=== PATIENT | female | born 1950 | race Caucasian/White ===

== ENCOUNTER → 2018-03-04 | Day surgery (SDC) | payer BC ==
[2018-02-24 13:12] LABS: BASOPHILS % 0.6 % (0.0-1.0); EOSINOPHILS # (AUTO) 0.1 (0.0-0.4); EOSINOPHILS % 1.6 % (0.0-6.0); HEMATOCRIT 38.1 % (34.2-44.1); HEMOGLOBIN 12.5 g/dL (12.0-16.0); LYMPHOCYTES # (AUTO) 2.7 (1.0-3.2); MEAN CORPUSCULAR HEMOGLOBIN 33.6 pg (28-32); MEAN CORPUSCULAR HGB CONC 32.8 g/dL (31-35); MEAN CORPUSCULAR VOLUME 102.4 fL (81-99); MONOCYTES # (AUTO) 0.5 (0.2-0.8); NEUTROPHILS # (AUTO) 3.7 (2.1-6.9); NEUTROPHILS % 52.8 % (38.7-80.0); PLATELET COUNT 139 x10e3/uL (140-360); RED BLOOD COUNT 3.72 x10e6/uL (3.6-5.1); RED CELL DISTRIBUTION WIDTH 13.2 % (11.7-14.4)
[~2018-03-04] MED LIST: ACETAMINOPHEN PO; ALENDRONATE SOD70 MG PO; ARMOUR THYROID120 MG PO; ASPIR 8181 MG PO; BENADRYL25 M1 PO; BUSPIRONE HCL15 MG PO; CALCIUM 1,0001 EACH PO; COQ-10100 MG PO; DEXILANT60 MG PO; FENTANYL CITRATE/PF 100MCG/2 ML INJ ONE; FUROSEMIDE40 MG PO; MAGNESIUM OXID400 MG PO; METOPROLOL SUCC50 MG PO; MIDAZOLAM HCL 2 MG/2 ML VIAL ONE; MULTIVITAMINS1 EAC7 PO; NORCO 10-325 T1 EACH PO; OR PHACO EYE KIT ONE; POTASSIUM99 M1 PO; PREOP PHACO EYE KIT ONE; SELENIUM100 MCG PO; TRAZODONE HCL100 MG PO; TRINTELLIX PO; ULTRAM 50MG50 MG PO; VITAMIN D35000 UNI1 PO; VITAMIN E400 UNI1 PO; ZINC50 M2 PO; [UNRECOGNIZED DRUG - OTHER] PO; [UNRECOGNIZED DRUG - OTHER] PO
--- OUTSIDE RECORDS SUMMARY | 2018-03-04 13:11 | XMS REPORT | Clinical Summary ---
Author Author Pritchard [facility] Organization [facility] Address Unknown Phone Unavailable Care Team Providers Care Grit Blaster Name Role Phone Asked, Pcp PCP Unavailable Allergies No Known Allergies Current Medications Prescription Sig. Disp. Refills Start End Date Status Date thyroid, pork, (ARMOUR Take 180 mg by mouth Active THYROID) 180 mg tablet daily. alendronate (FOSAMAX) 70 Take 70 mg by mouth every Active MG tablet 7 days. Take in the morning with a full glass of water, on an empty stomach, and do not take anything else by mouth or lie down for the next 30 min. HYDROcodone-acetaminophen Take 1 tablet by mouth Active (NORCO) 10-325 mg per every 6 (six) hours as tablet needed for moderate pain. traMADol (ULTRAM) 50 mg Take 50 mg by mouth every Active tablet 6 (six) hours as needed for moderate pain. busPIRone (BUSPAR) 10 MG Take 15 mg by mouth 3 Active tablet (three) times a day. metoprolol succinate XL Take 50 mg by mouth Active (TOPROL-XL) 50 mg 24 hr daily. tablet furosemide (LASIX) 40 mg Take 40 mg by mouth 2 Active tablet (two) times a day. dexlansoprazole Take 60 mg by mouth Active (DEXILANT) 60 mg capsule daily. methyldopa (ALDOMET) 500 Take 500 mg by mouth 3 Active MG tablet (three) times a day. acetaminophen (TYLENOL) Insert 325 mg into the Active 325 MG suppository rectum every 4 (four) hours as needed for mild pain. potassium chloride Take 20 mEq by mouth 2 Active (KLOR-CON) 20 mEq packet (two) times a day. aspirin (ECOTRIN) 81 MG Take 81 mg by mouth Active enteric coated tablet daily. ARMOUR THYROID 120 mg 01/16/20 Active tablet 18 traZODone (DESYREL) 100 02/04/20 Active MG tablet 18 TRINTELLIX 20 mg tablet 01/22/20 Active 18 coenzyme Q10 (CO Q-10) Take 100 mg by mouth Active 100 mg capsule daily. cholecalciferol, vitamin Take by mouth. Active D3, (VITAMIN D3) 5,000 unit tablet vitamin E 400 UNIT Take 400 Units by mouth Active capsule daily. CALCIUM ACETATE ORAL Take 1,000 mg by mouth. Active zinc 50 mg tablet Take by mouth. Active multivitamin/iron/folic Take by mouth. 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) after 03/03/2017 Social History Tobacco Use Types Packs/Day Years Used Date Former Smoker Smokeless Tobacco: Former User Alcohol Use Drinks/Week oz/Week Comments No Sex Assigned at Date Recorded Not on file Last Filed Vital Signs Vital Sign Reading Time Taken Blood Pressure 112/54 02/05/2018 9:38 AM CDT Pulse 55 02/05/2018 9:38 AM CDT Temperature 36.6 C (97.8 F) 02/05/2018 9:38 AM CDT Respiratory Rate 16 02/05/2018 9:38 AM CDT Oxygen Saturation - - Inhaled Oxygen - - Concentration Weight 56.7 kg (125 lb) 02/05/2018 9:38 AM CDT Height 154.9 cm (5' 1") 02/05/2018 9:38 AM CDT Body Mass Index 23.62 02/05/2018 9:38 AM CDT Plan of Treatment Date Type Specialty Care Team Description 04/02/2018 Office Visit Cardiovascular Scott Borden MD [address] [address] Health Maintenance Due Date Last Done Comments COLONOSCOPY 2000 MAMMOGRAM 2000 SHINGRIX VACCINE (#1) 2000 ZOSTER VACCINE 2010 PNEUMOCOCCAL 2015 POLYSACCHARIDE VACCINE AGE 65 AND OVER PNEUMOCOCCAL-13 2015 INFLUENZA VACCINE 05/21/2018 Results * PV physiologic arterial upper extremity w thoracic outlet maneuvers (2017 9:41 AM) Specimen Performing Laboratory [facility] [address] [place] [address] Narrative [facility] Upper Extremity Arterial Physiologic Report [address] [place], [place] Pat.Name:AUNG MACHADO Pat.ID:[id number] St.Date: 02/05/2018 Refer.MD:SCOTT BORDEN MD Exam Time: 8:33:00 AMStudy Type:Physiologic Arm DOBAge:1950,67Y Sex: FEMALE Sonogrphr: Cande Robertson RN, RVT CPT - 4: 08791 Echo Event ID:[id number] Order ID:[id number] Reason for Study:Dull aching pain both arms at rest, left greater than right, with piercing pain left upper arm with reaching, thumb and 2nd digit become numb.History of TOS left with muscle/tendon release in 1994.Weight loss of 200pounds since 1994 with increased pain. Race:C SUMMARY: DOPPLER SIGNALS /ANALOG WAVEFORMS: ARTERY RIGHT LEFT Subclavian Triphasic* Triphasic* Axillary Triphasic* Triphasic* Brachial Triphasic Triphasic Radial Triphasic Triphasic Ulnar Triphasic Triphasic *=Disturbed SEGMENTAL PRESSURE: Pressure (mmHg)Index RIGHTLEFT RIGHT LEFT Brachial 116 121 Radial 121 130 1.0 1.07 Ulnar 122 128 1.01 1.06 2nd Digit 137 141 1.13 1.17 THORACIC OUTLET MANEUVERS: PPG placed on bilateral index finger (second digit) RIGHT LEFT Baseline /resting Normal Normal Arms 90 degrees Normal Normal Arms 180 degrees Normal Normal MilitaryNormal Normal -head rightNormal Normal -head left Normal Normal Symptomatic-arms extended Normal Normal to front at 45 degrees Patient reports aching both upper arms at rest with increased pain in left upper arm with arm extended 45 degrees. The patient was seen in clinic today by Dr. Borden. PHYSICIAN INTERPRETATION: 1.Disturbed Doppler waveforms in the subclavian and axillary arteries suggest flow obstruction. 2.Resting wrist brachial and digit brachial indices are within normal limits. 3.No change in amplitude ofbilateral second digit PPG waveform with maneuvers, suggesting negative arterial thoracic outlet exam. Signed 02/05/2018 10:33 AM Jonny Akins MD, RPVI Procedure Note Interface, Radiology Results In - 02/05/2018 10:34 AM CDT [facility] Upper Extremity Arterial Physiologic Report [address] [place] [address] Pat.Name: AUNG MACHADO.ID: [id number] .Date: 02/05/2018 Refer.MD: SCOTT BORDEN MD Exam Time: 8:33:00 AM Study Type:Physiologic Arm Age: 8 1950,67Y Sex: FEMALE Sonogrphr: Cande Robertson RN, RVT CPT - 4: 61524 Echo Event ID:[id number] Order ID: [id number] Reason for Study:Dull aching pain both arms at rest, left greater than right, with piercing pain left upper arm with reaching, thumb and 2nd digit become numb. History of TOS left with muscle/tendon release in 1994. Weight loss of 200 pounds since 1994 with increased pain. Race: C SUMMARY: DOPPLER SIGNALS / ANALOG WAVEFORMS: ARTERY RIGHT LEFT Subclavian Triphasic* Triphasic* Axillary Triphasic* Triphasic* Brachial Triphasic Triphasic Radial Triphasic Triphasic Ulnar Triphasic Triphasic *=Disturbed SEGMENTAL PRESSURE: Pressure (mmHg) Index RIGHT LEFT RIGHT LEFT Brachial 116 121 Radial 121 130 1.0 1.07 Ulnar 122 128 1.01 1.06 2nd Digit 137 141 1.13 1.17 THORACIC OUTLET MANEUVERS: PPG placed on bilateral index finger (second digit) RIGHT LEFT Baseline /resting Normal Normal Arms 90 degrees Normal Normal Arms 180 degrees Normal Normal Normal Normal -head right Normal Normal -head left Normal Normal Symptomatic-arms extended Normal Normal to front at 45 degrees Patient reports aching both upper arms at rest with increased pain in left upper arm with arm extended 45 degrees. The patient was seen in clinic today by Dr. Borden. PHYSICIAN INTERPRETATION: 1. Disturbed Doppler waveforms in the subclavian and axillary arteries suggest flow obstruction. 2. Resting wrist brachial and digit brachial indices are within normal limits. 3. No change in amplitude of bilateral second digit PPG waveform with maneuvers, suggesting negative arterial thoracic outlet exam. Signed 02/05/2018 10:33 AM Jonny Akins MD, RPVI * MRI Spine External Study (01/15/2018 1:26 PM) [place] [address] Narrative This exam was not acquired at a [facility] facility and has not been interpreted by a [facility] Provider.The exam was imported into our imaging system for comparisons purposes. after 03/03/2017 Insurance Payer Benefit Subscriber ID Type Phone Address Plan / Group BCBS BCBS xxxxxxxxxxxx PPO CHOICE PPO/SUSAN ESPANA
== END | disposition home or self-care (01) ==
LOC: OR 13:09
PROVIDERS: ATTEND Ophthalmology
DX: H25.12 Age-related nuclear cataract, left eye (principal); Z01.812 Encounter for preprocedural laboratory examination; I10 Essential (primary) hypertension
CPT/HCPCS: 36415; 66984; 85025; J2250

== ENCOUNTER → 2018-03-18 | Day surgery (SDC) | payer BC ==
--- OUTSIDE RECORDS SUMMARY | 2018-03-18 11:17 | XMS REPORT | Clinical Summary ---
Author Author P[facility]chard [facility] Organization [facility] Address Unknown Phone Unavailable Care Team Providers Care Salesforce Specialist Name Role Phone Asked, Pcp PCP Unavailable [...] outlet MD Serafin syndrome) (Primary Dx) after 03/17/2017 Social History Tobacco Use Types Packs/Day Years [...] 04/02/2018 Office Visit Cardiovascular Scott Borden MD [address] [address] Health Maintenance Due Date Last Done Comments BREAST CANCER SCREENING 2000 COLON CANCER SCREENING 2000 SHINGRIX VACCINE (#1) 2000 ZOSTER VACCINE 2010 PNEUMOCOCCAL 2015 POLYSACCHARIDE VACCINE AGE 65 AND OVER PNEUMOCOCCAL-13 2015 INFLUENZA VACCINE 05/21/2018 Results * PV physiologic arterial upper extremity w thoracic outlet maneuvers (2017 9:41 AM) Specimen Performing Laboratory [facility] [address] [place] [address] Narrative [facility] Upper Extremity Arterial Physiologic Report [address] [place], [place] Pat.Name:AUNG MACHADO Pat.ID:[id number] St.Date: 02/05/2018 Refer.MD:SCOTT BORDEN MD Exam Time: 8:33:00 AMStudy Type:Physiologic Arm DOBAge:1950,67Y Sex: FEMALE Sonogrphr: Cande Robertson RN, RVT CPT - 4: 83542 Echo Event ID:[id number] Order ID:[id number] Reason for Study:Dull aching pain both arms [...] VASCULAR LABORATORY Upper Extremity Arterial Physiologic Report [address] [place] [address] Pat.Name: AUNG MACHADO.ID: [id number] .Date: 02/05/2018 Refer.MD: SCOTT BORDEN MD Exam Time: 8:33:00 AM Study Type:Physiologic Arm Age: 8 1950,67Y Sex: FEMALE Sonogrphr: Cande Robertson RN, RVT CPT - 4: 56411 Echo Event ID:[id number] Order ID: [id number] Reason for Study:Dull aching pain both arms [...] Study (01/15/2018 1:26 PM) Specimen [place] [address] Narrative This exam was not acquired at a [facility] facility and has not been interpreted by a [facility] Provider.The exam was imported into our imaging system for comparisons purposes. after 03/17/2017 Insurance Payer Benefit Subscriber ID Type Phone Address Plan / Group BCBS BCBS xxxxxxxxxxxx PPO CHOICE PPO/SUSAN CARPENTER PPO
== END | disposition home or self-care (01) ==
LOC: OR 11:15
PROVIDERS: ATTEND Ophthalmology
DX: H25.11 Age-related nuclear cataract, right eye (principal); E03.9 Hypothyroidism, unspecified; R00.0 Tachycardia, unspecified; I10 Essential (primary) hypertension; Z79.82 Long term (current) use of aspirin
CPT/HCPCS: 66984; J2250; V2787